=== PATIENT | female | born 1935 | race Caucasian/White ===

== ENCOUNTER 2020-02-12 11:43 | Emergency (ER) | payer OTHER ==
[~2020-02-12] VITALS: Ht 170.2 cm; Wt 99.8 kg
[~2020-02-12 11:43] MED LIST: ACCUPRIL40 MG PO; ACETAMINOPHEN-1 EAC1 PO; ADULT LOW DOSE81 MG PO; ADVAIR DISKUS INH; ADVAIRDISKUS PO; APAP500 PO; ASPIR 8181 MG PO; CALCIUM 600 +1 EAC7 PO; FISH OIL 1,0001 EAC7 PO; FISH OIL 500 M1 EAC1 PO; FLONASE 0.05%50 MCG; GLUCOPHAGE500 MG; HYDROCHLOROTHIA25 M2 PO; HYDROCODON-ACE1 EACH; HYDROCODONE-AP1 EAC6 PO; LEVOTHYROXIN0.112 M1 PO; NEXIUM40 MG PO; PRAVACHOL40 MG PO; RECLAST 55 MG/100 M; SYNTHROID200 MCG PO; TYLENOL EX-STR500 M2 PO; VERAPAMIL E.R240 M1 PO
[2020-02-12] MEDS ORDERED: NEXIUM40 MG PO (11:57)
[2020-02-12] MEDS ORDERED: VERAPAMIL E.R240 M1 PO (11:58)
[2020-02-12] MEDS ORDERED: COZAAR100 MG PO (11:58)
[2020-02-12] MEDS ORDERED: MONTELUKAST SODI PO (11:58)
[2020-02-12] MEDS ORDERED: ADVAIR 250-501 EACH INH (11:58)
[2020-02-12] MEDS ORDERED: TIROSINT125 MCG PO (11:59)
[2020-02-12] MEDS ORDERED: NEXIUM 40 MG CA40 M1 PO (11:59)
[2020-02-12 12:27] LABS: HEMOGLOBIN 12.8 gm/dL (12.0-15.0); MCH 31.7 pg (26.0-34.0); MCHC 33.6 g/dL (28.0-37.0); MCV 94.3 fL (80.0-100.0); MPV 7.7 fl. (7.2-11.1); NUCLEATED RBCS 0 /100WBC; PLATELET COUNT* 183 thou/uL (150-400); RBC 4.03 mil/uL (4.20-5.00); RDW-CV 13.7 % (10.5-14.5); WBC 3.4 thou/uL (4.0-11.0)
[2020-02-12 12:40] LABS: URINE BILIRUBIN NEGATIVE (Negative); URINE BLOOD NEGATIVE (Negative); URINE CLARITY CLEAR; URINE COLOR YELLOW; URINE GLUCOSE-RANDOM NEGATIVE (Negative); URINE KETONES NEGATIVE (Negative); URINE LEUKOCYTES-REFLEX 1+ (Negative); URINE NITRITE-REFLEX NEGATIVE (Negative); URINE PROTEIN TRACE (Negative); URINE SPECIFIC GRAVITY 1.015 (1.005-1.030); URINE UROBILINOGEN 0.2 E.U./dl (0.2-1.0)
[2020-02-12 12:41] LABS: APTT 26.5 Seconds (25.0-31.3); INR 1.1; PROTIME 11.2 Seconds (9.20-11.50)
[2020-02-12 12:42] LABS: CALCIUM 8.9 mg/dL (8.5-10.1); CREATININE 1.3 mg/dL (0.6-1.3); POTASSIUM 3.3 mmol/L (3.5-5.1)
[2020-02-12 12:51] LABS: ABSOLUTE LYMPHOCYTES 1.8 thou/uL (0.8-5.3); ABSOLUTE MONOCYTES 0.4 thou/uL (0.0-1.2); ABSOLUTE NEUTROPHILS 1.1 thou/uL (1.6-8.1); ATYPICAL LYMPHS 9 %; PLATELET ESTIMATE ADEQUATE
[2020-02-12 12:53] LABS: ALBUMIN 3.4 g/dL (3.4-5.0); TOTAL BILIRUBIN 0.4 mg/dL (<0.1-1.0); TOTAL PROTEIN 7.2 g/dL (6.4-8.2)
[2020-02-12 12:54] LABS: BACTERIA-REFLEX 1-9 Few /HPF (None Seen); CASTS None Seen /LPF (None Seen); CRYSTALS None Seen /LPF (None Seen); MUCUS None Seen strn/LPF (None Seen); SQUAMOUS >10 Many /LPF (0-3); URINE RBC 0-2 Rare /HPF (0-2); URINE WBC-REFLEX 0-5 Rare /HPF (0-5)
[2020-02-12] MEDS ORDERED: MUCINEX600 MG PO (14:43)
[2020-02-12] MEDS ORDERED: DOXYCYCLINE 10100 MG PO (14:43)
[2020-02-12] MEDS ORDERED: ONDANSETRON HCL4 M2 PO (14:43)
[2020-02-12 15:35] VITALS: BP 152/81
--- NOTE | 2020-02-12 16:50 | EKG ---
[place] [address] ELECTROCARDIOGRAM REPORT Name: DAMIEN DUNBAR Room: [facility]#: [id number] Admission: 02/12/20 Attend Phys: Discharge: 02/12/20 Date of : 31 Date of Service: 02/12/20 1206 Report #: [id number] THIS REPORT FOR: //name// [facility] ED Test Date: 2020-02-12 Test Time: 12:06:18 Pat Name: DAMIEN MANJINDER Department: Room: Gender: F Interior Design Coordinator: KVNG : 1935 Requested By: Juni Gomes Order Number: [id number] MD: Abisai Mascorro Measurements Intervals [place] Rate: 84 P: 52 FL: 187 QRS: 47 QRSD: 112 T: 26 QT: 396 QTc: 469 Interpretive Statements Sinus rhythm Borderline intraventricular conduction delay Baseline wander in lead(s) I,III,aVR,aVL Compared to ECG 05/21/2016 14:33:22 Ventricular premature complex(es) no longer present Electronically Signed On 02-12-2020 16:50:15 [employer] by Abisai Mascorro [email or web address] <ELECTRONICALLY SIGNED> By: Abisai Mascorro MD, FACC 02/12/20 1650 1206 1206 Abisai Mascorro MD, FACC /EPI
== END 2020-02-12 15:30 | disposition home or self-care (01) ==
LOC: M.ERS 11:43
PROVIDERS: Family Medicine
DX: J01.90 Acute sinusitis, unspecified (principal); E87.1 Hypo-osmolality and hyponatremia; E11.9 Type 2 diabetes mellitus without complications; I10 Essential (primary) hypertension; M19.90 Unspecified osteoarthritis, unspecified site; K21.9 Gastro-esophageal reflux disease without esophagitis; E66.9 Obesity, unspecified; Z79.899 Other long term (current) drug therapy; Z79.82 Long term (current) use of aspirin; Z88.1 Allergy status to other antibiotic agents; Z88.0 Allergy status to penicillin